=== PATIENT | female | born 1950 | race Caucasian/White ===

== ENCOUNTER 2017-02-23 08:18 | Observation (INO) | payer MEDICARE, OTHER ==
[2017-02-23] MEDS ORDERED: ONDANSETRON 4 MG/2 ML VIAL IVP STA (08:49)
[2017-02-23] MEDS ORDERED: SODIUM CHLORIDE 0.9% 1,000 ML IV STA (08:49)
[2017-02-23] MEDS ORDERED: RX INFO: IV CONTRAST WAS GIVEN 1 EACH MISC MISCELLANE PRN (08:49)
[2017-02-23] MEDS ORDERED: HYDROmorphone 0.5 MG/0.5 ML SYRINGE IVP STA ×2 (08:49→10:27)
--- NOTE | 2017-02-23 08:55 | ED ---
General Adult HPI - General Chief complaint: Abdominal Pain Stated complaint: Rt rib pain Time Seen by Provider: 02/23/17 08:45 Source: patient, RN notes reviewed Mode of arrival: wheelchair Limitations: no limitations - History of Present Illness Initial comments: 66 yo female presents to the ER with cc of right upper quadrant abdominal pain. She has had this since 8 AM yesterday. She states she's had nausea vomiting. She has a history of diverticulitis and states it feels much like that. She states she's been unable to keep really anything down. She's been drinking water. There's been no diarrhea. She does not think that she's had a fever but she has had the chills. Patient was concerned due to her continued symptoms so she thought that she should be evaluated.Patient denies any recent fever, chills, shortness of breath, chest pain, back pain, numbness or tingling , dysuria or hematuria, constipation or diarrhea, headaches or visual changes, or any other current symptoms. - Related Data Home Medications Medication Instructions Recorded Confirmed HYDROcodone/APAP 10-325MG [[place] 1 tab PO DAILY PRN 09/06/15 02/23/17 10-325] Allergies Allergy/AdvReac Type Severity Reaction Status Date / Time ibuprofen [From Motrin] AdvReac Abdominal Verified 02/23/17 08:59 Pain iodine AdvReac Abdominal Verified 02/23/17 08:59 Pain Review of Systems ROS Statement: Those systems with pertinent positive or pertinent negative responses have been documented in the HPI. ROS Other: All systems not noted in ROS Statement are negative. Past Medical History Additional Past Medical History / Comment(s): chronic back pain, diverticulitis History of Any Multi-Drug Resistant Organisms: None Reported Past Surgical History: Joint Replacement, Orthopedic Surgery Past Psychological History: No Psychological Hx Reported Smoking Status: Current every day smoker Past Alcohol Use History: Daily Past Drug Use History: None Reported General Exam - General Exam Comments Initial Comments: General: The patient is awake and alert, in no distress, and does not appear acutely ill. Eye: Pupils are equal, round and reactive to light, extra-ocular movements are intact; there is normal conjunctiva bilaterally. No signs of icterus. Ears, nose, mouth and throat: There are moist mucous membranes. Neck: The neck is supple, there is no tenderness. Cardiovascular: There is a regular rate and rhythm. No murmur, rub or gallop is appreciated. Respiratory: Lungs are clear to auscultation, respirations are non-labored, breath sounds are equal. No wheezes, stridor, rales, or rhonchi. Gastrointestinal: Soft, non-distended, mild tenderness right upper quadrant of the abdomen without masses or organomegaly noted. There is no rebound or guarding present. No CVA tenderness. Bowel sounds are unremarkable. Back: There is no tenderness to palpation in the midline. There is no obvious deformity. No rashes noted. Musculoskeletal: Normal ROM, no tenderness, There is no pedal edema. There is no calf tenderness or swelling. Sensation intact. Pulses equal bilaterally 2+. Neurological: CN II-XII intact, There are no obvious motor or sensory deficits. Coordination appears grossly intact. Speech is normal. Skin: Skin is warm and dry and no rashes or lesions are noted. Psychiatric: Cooperative, appropriate mood & affect, normal judgment. Limitations: no limitations Course Vital Signs 02/23/17 02/23/17 02/23/17 08:31 08:35 09:12 Temperature 97.0 F L Pulse Rate 102 H 73 Respiratory 20 16 Rate Blood Pressure 222/115 219/102 225/105 O2 Sat by Pulse 97 96 Oximetry 02/23/17 02/23/17 10:25 11:30 Temperature Pulse Rate 70 76 Respiratory 16 16 Rate Blood Pressure 199/99 198/95 O2 Sat by Pulse 99 98 Oximetry Medical Decision Making - Medical Decision Making 66-year-old female presents emergency department with a chief complaint of abdominal pain with history of diverticulitis. At this time patient's CAT scan is reviewed. Urinalysis does show suspicion for UTI would give her Rocephin. She symptoms are most consistent with pyelonephritis however we will treat. Patient also does appear to have this to are not bloody. We discussed the patient is could've been different etiologies. We discussed the risk of cancer with this. We did discuss that she does seem to be admitted to the hospital for continued care and evaluation. We discussed we will continue antibiotics. We did discuss that due to the vomited there is concern this could be a partial obstruction with this. Patient at this time was admitted to on-call care. [facility] accepts admission. - Lab Data Result diagrams: 02/23/17 09:00 02/23/17 09:00 Lab Results 02/23/17 02/23/17 02/23/17 Range/Units 09:00 09:00 09:00 WBC 9.2 (3.8-10.6) k/uL RBC 5.23 (3.80-5.40) m/uL Hgb 16.1 H (11.4-16.0) gm/dL Hct 49.9 H (34.0-46.0) % MCV 95.5 (80.0-100.0) fL MCH 30.9 (25.0-35.0) pg MCHC 32.3 (31.0-37.0) g/dL RDW 14.2 (11.5-15.5) % Plt Count 288 (150-450) k/uL Neutrophils % 83 % Lymphocytes % 13 % Monocytes % 3 % Eosinophils % 1 % Basophils % 0 % Neutrophils # 7.6 (1.3-7.7) k/uL Lymphocytes # 1.2 (1.0-4.8) k/uL Monocytes # 0.2 (0-1.0) k/uL Eosinophils # 0.1 (0-0.7) k/uL Basophils # 0.0 (0-0.2) k/uL Sodium 138 (137-145) mmol/L Potassium 4.2 (3.5-5.1) mmol/L Chloride 101 (98-107) mmol/L Carbon Dioxide 22 (22-30) mmol/L Anion Gap 15 mmol/L BUN 11 (7-17) mg/dL Creatinine 0.68 (0.52-1.04) mg/dL Est GFR (MDRD) Af Amer >60 (>60 ml/min/1.73 sqM) Est GFR (MDRD) Non-Af >60 (>60 ml/min/1.73 sqM) Glucose 128 H (74-99) mg/dL Plasma Lactic Acid Gareth 1.3 (0.7-2.0) mmol/L Calcium 10.3 H (8.4-10.2) mg/dL Total Bilirubin 1.2 (0.2-1.3) mg/dL AST 24 (14-36) U/L ALT 30 (9-52) U/L Alkaline Phosphatase 92 (38-126) U/L Total Protein 8.1 (6.3-8.2) g/dL Albumin 4.8 (3.5-5.0) g/dL Amylase 47 (30-110) U/L Lipase 41 (23-300) U/L Urine Color Urine Appearance (Clear) Urine pH (5.0-8.0) Ur Specific [place] (1.001-1.035) Urine Protein (Negative) Urine Glucose (UA) (Negative) Urine Ketones (Negative) Urine Blood (Negative) Urine Nitrite (Negative) Urine Bilirubin (Negative) Urine Urobilinogen (<2.0) mg/dL Ur Leukocyte Esterase (Negative) Urine RBC (0-5) /hpf Urine WBC (0-5) /hpf Ur Squamous Epith Cells (0-4) /hpf Urine Bacteria (None) /hpf Hyaline Casts (0-2) /lpf Urine Mucus (None) /hpf 02/23/17 Range/Units 09:00 WBC (3.8-10.6) k/uL RBC (3.80-5.40) m/uL Hgb (11.4-16.0) gm/dL Hct (34.0-46.0) % MCV (80.0-100.0) fL MCH (25.0-35.0) pg MCHC (31.0-37.0) g/dL RDW (11.5-15.5) % Plt Count (150-450) k/uL Neutrophils % % Lymphocytes % % Monocytes % % Eosinophils % % Basophils % % Neutrophils # (1.3-7.7) k/uL Lymphocytes # (1.0-4.8) k/uL Monocytes # (0-1.0) k/uL Eosinophils # (0-0.7) k/uL Basophils # (0-0.2) k/uL Sodium (137-145) mmol/L Potassium (3.5-5.1) mmol/L Chloride (98-107) mmol/L Carbon Dioxide (22-30) mmol/L Anion Gap mmol/L BUN (7-17) mg/dL Creatinine (0.52-1.04) mg/dL Est GFR (MDRD) Af Amer (>60 ml/min/1.73 sqM) Est GFR (MDRD) Non-Af (>60 ml/min/1.73 sqM) Glucose (74-99) mg/dL Plasma Lactic Acid Gareth (0.7-2.0) mmol/L Calcium (8.4-10.2) mg/dL Total Bilirubin (0.2-1.3) mg/dL AST (14-36) U/L ALT (9-52) U/L Alkaline Phosphatase (38-126) U/L Total Protein (6.3-8.2) g/dL Albumin (3.5-5.0) g/dL Amylase (30-110) U/L Lipase (23-300) U/L Urine Color Light Red Urine Appearance Cloudy H (Clear) Urine pH 6.0 (5.0-8.0) Ur Specific [place] 1.014 (1.001-1.035) Urine Protein Trace H (Negative) Urine Glucose (UA) Negative (Negative) Urine Ketones 2+ H (Negative) Urine Blood Moderate H (Negative) Urine Nitrite Negative (Negative) Urine Bilirubin Negative (Negative) Urine Urobilinogen <2.0 (<2.0) mg/dL Ur Leukocyte Esterase Large H (Negative) Urine RBC 29 H (0-5) /hpf Urine WBC 20 H (0-5) /hpf Ur Squamous Epith Cells 4 (0-4) /hpf Urine Bacteria Occasional H (None) /hpf Hyaline Casts 12 H (0-2) /lpf Urine Mucus Few H (None) /hpf - Radiology Data Radiology results: report reviewed, image reviewed Disposition Clinical Impression: UTI (urinary tract infection), Duodenal mass Disposition: ADMITTED IP TO THIS [facility] Condition: Stable Referrals: None,Stated [Primary Care Provider] - 1-2 days Time of Disposition: : Decision Date: 02/23/17 Decision Time: 18
[2017-02-23] MEDS ORDERED: FAMOTIDINE 20 MG/2 ML VIAL IV STA (09:00)
[2017-02-23] MEDS ORDERED: methylPREDNISolone SOD SUCCI 125 MG/2 ML VIAL IV STA (09:00)
[2017-02-23] MEDS ORDERED: diphenhydrAMINE 50 MG/ML 1 ML VIAL IVP STA (09:00)
[2017-02-23 09:23] LABS: Basophils % (A) 0 %; Eosinophils # (A) 0.1 k/uL (0-0.7); Eosinophils % (A) 1 %; HCT 49.9 % (34.0-46.0); HGB 16.1 gm/dL (11.4-16.0); Lymphocytes # (A) 1.2 k/uL (1.0-4.8); Lymphocytes % (A) 13 %; MCH 30.9 pg (25.0-35.0); MCHC 32.3 g/dL (31.0-37.0); MCV 95.5 fL (80.0-100.0); Mean Platelet Volume 8.2; Monocytes # (A) 0.2 k/uL (0-1.0); Monocytes % (A) 3 %; Neutrophils # (A) 7.6 k/uL (1.3-7.7); Neutrophils % (A) 83 %; Platelet Count 288 k/uL (150-450); RBC 5.23 m/uL (3.80-5.40); RDW 14.2 % (11.5-15.5); WBC 9.2 k/uL (3.8-10.6)
[2017-02-23 09:33] LABS: ALT 30 U/L (9-52); AST 24 U/L (14-36); Albumin 4.8 g/dL (3.5-5.0); Alkaline Phosphatase 92 U/L (38-126); Amylase 47 U/L (30-110); Anion Gap 15 mmol/L; Blood Urea Nitrogen 11 mg/dL (7-17); Calcium 10.3 mg/dL (8.4-10.2); Carbon Dioxide 22 mmol/L (22-30); Chloride 101 mmol/L (98-107); Glucose 128 mg/dL (74-99); Lipase 41 U/L (23-300); Potassium 4.2 mmol/L (3.5-5.1); Sodium 138 mmol/L (137-145); Total Bilirubin 1.2 mg/dL (0.2-1.3); Total Protein 8.1 g/dL (6.3-8.2)
[2017-02-23 09:37] LABS: Appearance,Urine Cloudy (Clear); Bacteria,Urine Occasional /hpf; Bilirubin,Urine Negative (Negative); Blood,Urine Moderate (Negative); Color,Urine Light Red; Glucose,Urine (UA) Negative (Negative); Hyaline Casts,Urine 12 /lpf (0-2); Ketones,Urine 2+ (Negative); Leukocyte Esterase,Urine Large (Negative); Mucus,Urine Few /hpf; Nitrite,Urine Negative (Negative); Protein,Urine Trace (Negative); RBC,Urine 29 /hpf (0-5); Specific Gravity,Urine 1.014 (1.001-1.035); Squamous Epithelial Cell,Urine 4 /hpf (0-4); Urobilinogen,Urine <2.0 mg/dL (<2.0); WBC,Urine 20 /hpf (0-5)
--- NOTE | 2017-02-23 10:34 | CT ---
EXAMINATION TYPE: CT abdomen pelvis w con DATE OF EXAM: 02/23/2017 HISTORY: Mid abd pain, vomiting, history of diverticulitis CT DLP: 313.8mGycm Automated Exposure Control for Dose Reduction was Utilized. CONTRAST: CT scan of the abdomen and pelvis is performed with IV Contrast, patient injected with 100 mL of Omni paque 300. COMPARISON: None. FINDINGS: LUNG BASES: No significant abnormality is appreciated. LIVER/GB: No significant abnormality is appreciated. No cholelithiasis. PANCREAS: No significant abnormality is seen. No ductal dilatation. SPLEEN: No significant abnormality is seen. No splenomegaly. ADRENALS: No discrete nodularity. KIDNEYS: Focal wedge-shaped area of hypoattenuation within the left kidney midpole to lower pole with out cortical retraction may represent infarct or pyelonephritis. No appreciable cortical rim sign is seen and therefore pyelonephritis is favored. Extrarenal pelvis is noted without hydronephrosis of ei ther kidney. BOWEL: There is proximal small bowel dilatation of the first through fourth portions of the duodenum measuring up to 3.7 cm on coronal series 7 image 26 of the descending duodenum with transition just d istal to the ligament of Treitz in the proximal aspect of the jejunum also on series 7 image 26 where there is slightly medial eccentric focal bowel wall thickening in a short segment of 9 mm on series 7 image 27 and 26 with bowel thickening up to 6.6 mm. Distal to this the jejunum as within normal bhandari its of caliber on series 7 image 19 measuring 2.7 cm. Remainder of the loops of small bowel are parti ally air-filled but nondilated. Evaluation of the colon is somewhat limited given incomplete distention and the possibility of intra- abdominal fat with closely opposing loops of small bowel, however no focal inflammatory changes seen. UTERUS/ADNEXA: Numerous engorged pelvic varices are seen bilaterally which can be seen in pelvic sonido estion syndrome. LYMPH NODES: Limited by the paucity of intra-abdominal fat. No gross evidence of greater than 1cm abd ominal or pelvic lymph nodes are appreciated. OSSEOUS STRUCTURES: Moderate degenerative disc disease of the visualized thoracolumbar and lumbosacra l spine are seen with grade 1 anterolisthesis of L4 on L5 without pars interarticularis defects. This is likely on a degenerative basis. IMPRESSION: 1. Focal wedge-shaped area of hypoattenuation within the left mid to lower pole without cortical rim sign therefore pyelonephritis is favored shows less likely renal infarct. Correlate with urinalysis. 2. Mildly dilated duodenum (segments 1 through 4) with transition point at an area of circumferential , slightly eccentric, and narrowing at the jejunum just past the ligament of Treitz. Stricture or mas s should be considered although infectious or inflammatory bowel wall thickening or possible. 3. 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
[2017-02-23] MEDS ORDERED: cefTRIAXone IN SWFI 1,000 MG/10 ML SYRINGE IVP STA (11:05)
[2017-02-23] MEDS ORDERED: NALOXONE 0.4 MG/ML 1 ML VIAL IV PRN (11:41)
[2017-02-23] MEDS ORDERED: ONDANSETRON 4 MG/2 ML VIAL IVP PRN (11:41)
[2017-02-23] MEDS: SODIUM CHLORIDE 0.9% 1,000 ML IV SCH (12:55)
--- NOTE | 2017-02-23 13:07 | P.CONS ---
History of Present Illness - Reason for Consult Possible urinary tract infection and peptic ulcer disease - History of Present Illness 66 yo female presents to the ER with cc of right upper quadrant abdominal pain. She has had this since 8 AM yesterday. She states she's had nausea vomiting. She has a history of diverticulitis and states it feels much like that. She states she's been unable to keep really anything down. She's been drinking water. There's been no diarrhea. She does not think that she's had a fever but she has had the chills. Patient's pain is in the right lower rib cage area and there is tenderness in that area, pain is about 7 x 10 now sharp in nature radiating to the back much worse earlier today. Patient had a CAT scan of the abdomen which showed possible stricture in the DRM are a mass in the duodenum with proximal dilated patient. Patient was started on Protonix patient will continue on IV fluids patient denied any sick and weight loss there was suspicion of or pyelonephritis on the CAT scan of the right lower pole of the kidney although there is no significant 70 evidence of urinary tract infection urine has elevated white blood cell count nitrate is negative leukocyte esterase is positive. Patient denied any dysuria suprapubic pain, since I cannot completely rule out urinary tract infection and started on Rocephin which will be continued. Review of Systems REVIEW OF SYSTEMS: CONSTITUTIONAL: No fever, no malaise, no fatigue. HEENT: No recent visual problems or hearing problems. Denied any sore throat. CARDIOVASCULAR: No chest pain, orthopnea, PND, no palpitations, no syncope. PULMONARY: No shortness of breath, no cough, no hemoptysis. GASTROINTESTINAL: As mentioned in HPI NEUROLOGICAL: No headaches, no weakness, no numbness. HEMATOLOGICAL: Denies any bleeding or petechiae. GENITOURINARY: Denies any burning micturition, frequency, or urgency. MUSCULOSKELETAL/RHEUMATOLOGICAL: Denies any joint pain, swelling, or any muscle pain. ENDOCRINE: Denies any polyuria or polydipsia. The rest of the 14-point review of systems is negative. Past Medical History Past Medical History: COPD, Osteoarthritis (OA), Pneumonia Additional Past Medical History / Comment(s): Chronic low back pain, DDD, bulging/herniated discs, sciatica bilaterally at times, diverticulitis, bilateral tinnitis at times, past R hip fracture after slip/fall on ice with surgery. History of Any Multi-Drug Resistant Organisms: None Reported Past Surgical History: Joint Replacement, Orthopedic Surgery Additional Past Surgical History / Comment(s): R hip hemiarthroplasty, R knee arthroscopy, R/L hand cyst removals, bilateral carpal tunnel releases, colonoscopy-normal. Past Anesthesia/Blood Transfusion Reactions: No Reported Reaction Additional Past Anesthesia/Blood Transfusion Reaction / Comm: Pt has never received blood. Smoking Status: Current every day smoker - Past Family History Father Additional Family Medical History / Comment(s): Father of a head injury. Mother Family Medical History: Dementia Additional Family Medical History / Comment(s): Mother is 89yrs old and has dementia. Medications and Allergies Home Medications Medication Instructions Recorded Confirmed Type HYDROcodone/APAP 10-325MG [[place] 1 tab PO DAILY PRN 09/06/15 02/23/17 History 10-325] Allergies Allergy/AdvReac Type Severity Reaction Status Date / Time ibuprofen [From Motrin] AdvReac Abdominal Verified 02/23/17 08:59 Pain iodine AdvReac Abdominal Verified 02/23/17 08:59 Pain Physical Exam Vitals: Vital Signs Temp Pulse Resp BP Pulse Ox 02/23/17 12:28 98.4 F 71 16 183/89 98 02/23/17 11:30 76 16 198/95 98 02/23/17 10:25 70 16 199/99 99 02/23/17 09:12 73 16 225/105 96 02/23/17 08:35 219/102 02/23/17 08:31 97.0 F L 102 H 20 222/115 97 Intake and Output 02/22/17 02/23/17 02/23/17 22:59 06:59 14:59 Other: Weight 45.813 kg Patient Weight 02/24/17 06:59 Weight 45.813 kg PHYSICAL EXAMINATION: GENERAL: The patient is alert and oriented x3, not in any acute distress. Thin built female HEENT: Pupils are round and equally reacting to light. EOMI. No scleral icterus. No conjunctival pallor. Normocephalic, atraumatic. No pharyngeal erythema. No thyromegaly. CARDIOVASCULAR: S1 and S2 present. No murmurs, rubs, or gallops. PULMONARY: Chest is clear to auscultation, no wheezing or crackles. ABDOMEN: Soft, nondistended, normoactive bowel sounds. No palpable organomegaly. Patient has tenderness in the right lower rib cage area MUSCULOSKELETAL: No joint swelling or deformity. EXTREMITIES: No cyanosis, clubbing, or pedal edema. NEUROLOGICAL: Gross neurological examination did not reveal any focal deficits. SKIN: No rashes. Results CBC & Chem 7: 02/23/17 09:00 02/23/17 09:00 Labs: Abnormal Lab Results - Last 24 Hours (Table) 02/23/17 02/23/17 02/23/17 Range/Units 09:00 09:00 09:00 Hgb 16.1 H (11.4-16.0) gm/dL Hct 49.9 H (34.0-46.0) % Glucose 128 H (74-99) mg/dL Calcium 10.3 H (8.4-10.2) mg/dL Urine Appearance Cloudy H (Clear) Urine Protein Trace H (Negative) Urine Ketones 2+ H (Negative) Urine Blood Moderate H (Negative) Ur Leukocyte Esterase Large H (Negative) Urine RBC 29 H (0-5) /hpf Urine WBC 20 H (0-5) /hpf Urine Bacteria Occasional H (None) /hpf Hyaline Casts 12 H (0-2) /lpf Urine Mucus Few H (None) /hpf Assessment and Plan Plan: -Abdominal pain nausea vomiting: Probably peptic ulcer disease with a stricture patient was started on Protonix further management as per primary surgical services. -Possibility of urinary tract infection cannot be ruled out urine cultures were obtained patient was started on Rocephin. -Nicotine abuse history: Counseling was provided
[2017-02-23] MEDS: HYDROmorphone 0.5 MG/0.5 ML SYRINGE IVP PRN ×3 (13:53→21:32)
[2017-02-23] MEDS: PANTOPRAZOLE 40 MG/10 ML VIAL IVP SCH ×2 (14:30→21:31)
--- NOTE | 2017-02-23 14:40 | P.GSHP ---
History of Present Illness H&P Date: 02/23/17 66-year-old thin fragile female looking older than stated age underweight presented to the emergency room with a chief complaint of right upper quadrant abdominal pain. Patient stated he had been ongoing for the past day. [place] nauseated with vomiting. Patient gives a history of having diverticulitis. Patient had a CAT scan of the abdomen and pelvic varices. Mildly dilated duodenum stricture or mass needs to be considered. Patient gives a history of alcohol consumption states that she drinks daily last drink was 48 hours ago. Patient states she has been having right lower rib area pain with tenderness. Patient states that she smokes marijuana daily and is an active current every day smoker. Patient states it's been over 20 years since she's had a colonoscopy. Past medical history COPD, osteoarthritis, chronic lower back pain. Past surgical history orthopedic procedures. - Review of Systems Comment: Essentially unremarkable except as mentioned in the present illness Past Medical History Past Medical History: COPD, Osteoarthritis (OA), Pneumonia Additional Past Medical History / Comment(s): Chronic low back pain, DDD, bulging/herniated discs, sciatica bilaterally at times, diverticulitis, bilateral tinnitis at times, past R hip fracture after slip/fall on ice with surgery. History of Any Multi-Drug Resistant Organisms: None Reported Past Surgical History: Joint Replacement, Orthopedic Surgery Additional Past Surgical History / Comment(s): R hip hemiarthroplasty, R knee arthroscopy, R/L hand cyst removals, bilateral carpal tunnel releases, colonoscopy-normal. Past Anesthesia/Blood Transfusion Reactions: No Reported Reaction Additional Past Anesthesia/Blood Transfusion Reaction / Comment(s): Pt has never received blood. Smoking Status: Current every day smoker - Past Family History Father Additional Family Medical History / Comment(s): Father of a head injury. Mother Family Medical History: Dementia Additional Family Medical History / Comment(s): Mother is 89yrs old and has dementia. Medications and Allergies Home Medications Medication Instructions Recorded Confirmed Type HYDROcodone/APAP 10-325MG [[place] 1 tab PO DAILY PRN 09/06/15 02/23/17 History 10-325] Allergies Allergy/AdvReac Type Severity Reaction Status Date / Time ibuprofen [From Motrin] AdvReac Abdominal Verified 02/23/17 08:59 Pain iodine AdvReac Abdominal Verified 02/23/17 08:59 Pain Surgical - Exam Vital Signs Temp Pulse Resp BP Pulse Ox 97.0 F L 102 H 20 222/115 97 02/23/17 08:31 02/23/17 08:31 02/23/17 08:31 02/23/17 08:31 02/23/17 08:31 GENERAL APPEARANCE: 66 -year-old female patient is alert, oriented,x 3 in no acute distress. VITAL SIGNS: Reviewed HEENT: Head is normocephalic and atraumatic. Pupils are equal and reactive. The nares are patent. Oropharynx is clear without lesions. NECK: Supple without lymphadenopathy. Traches midline. HEART: S1, S2. Regular rate and rhythm. Denies chest pain no murmur LUNGS: No crackles or wheezes are heard. No shortness of breath ABDOMEN: Soft, tenderness in the epigastric area nondistended with good bowel sounds. No peritoneal signs. No palpable organomegaly or masses. EXTREMITIES: Normal skin color and turgor. No cyanosis, rash, ulceration, clubbing or edema. Radial pedal pulses are 2/4 bilaterally. NEUROLOGICAL: No focal deficits. Strength and sensation are grossly intact. Results - Labs 02/23/17 09:00 02/23/17 09:00 Abnormal Lab Results - Last 24 Hours (Table) 02/23/17 02/23/17 02/23/17 Range/Units 09:00 09:00 09:00 Hgb 16.1 H (11.4-16.0) gm/dL Hct 49.9 H (34.0-46.0) % Glucose 128 H (74-99) mg/dL Calcium 10.3 H (8.4-10.2) mg/dL Urine Appearance Cloudy H (Clear) Urine Protein Trace H (Negative) Urine Ketones 2+ H (Negative) Urine Blood Moderate H (Negative) Ur Leukocyte Esterase Large H (Negative) Urine RBC 29 H (0-5) /hpf Urine WBC 20 H (0-5) /hpf Urine Bacteria Occasional H (None) /hpf Hyaline Casts 12 H (0-2) /lpf Urine Mucus Few H (None) /hpf Diabetes panel 02/23/17 Range/Units 09:00 Sodium 138 (137-145) mmol/L Potassium 4.2 (3.5-5.1) mmol/L Chloride 101 (98-107) mmol/L Carbon Dioxide 22 (22-30) mmol/L BUN 11 (7-17) mg/dL Creatinine 0.68 (0.52-1.04) mg/dL Glucose 128 H (74-99) mg/dL Calcium 10.3 H (8.4-10.2) mg/dL AST 24 (14-36) U/L ALT 30 (9-52) U/L Alkaline Phosphatase 92 (38-126) U/L Total Protein 8.1 (6.3-8.2) g/dL Albumin 4.8 (3.5-5.0) g/dL Calcium panel 02/23/17 Range/Units 09:00 Calcium 10.3 H (8.4-10.2) mg/dL Albumin 4.8 (3.5-5.0) g/dL Pituitary panel 02/23/17 Range/Units 09:00 Sodium 138 (137-145) mmol/L Potassium 4.2 (3.5-5.1) mmol/L Chloride 101 (98-107) mmol/L Carbon Dioxide 22 (22-30) mmol/L BUN 11 (7-17) mg/dL Creatinine 0.68 (0.52-1.04) mg/dL Glucose 128 H (74-99) mg/dL Calcium 10.3 H (8.4-10.2) mg/dL Adrenal panel 02/23/17 Range/Units 09:00 Sodium 138 (137-145) mmol/L Potassium 4.2 (3.5-5.1) mmol/L Chloride 101 (98-107) mmol/L Carbon Dioxide 22 (22-30) mmol/L BUN 11 (7-17) mg/dL Creatinine 0.68 (0.52-1.04) mg/dL Glucose 128 H (74-99) mg/dL Calcium 10.3 H (8.4-10.2) mg/dL Total Bilirubin 1.2 (0.2-1.3) mg/dL AST 24 (14-36) U/L ALT 30 (9-52) U/L Alkaline Phosphatase 92 (38-126) U/L Total Protein 8.1 (6.3-8.2) g/dL Albumin 4.8 (3.5-5.0) g/dL Assessment and Plan Assessment: Impression Present on admission right upper quadrant pain with nausea vomiting Possible UTI Daily alcohol consumption last drink 48 hours Daily marijuana use Current active tobacco abuse CAT scan of the abdomen possible stricture in the DRM with a mass in the duodenum not ruled out Plan EGD will be planned in the morning Home meds appropriate DVT and GI prophylaxis Clear liquid diet Further recommendations after EGD Pain control IV fluid for hydration Dietitian consult underweight nutritional supplements Dictating for Dr. cabrera The above impression and plan of care have been discussed and directed by signing physician. Preeti Post nurse practitioner acting as scribe for signing physician.
[2017-02-23 15:44] VITALS: BMI 17.3
[2017-02-24] MEDS: SODIUM CHLORIDE 0.9% 1,000 ML IV SCH ×3 (00:04→17:14)
[2017-02-24] MEDS: HYDROmorphone 0.5 MG/0.5 ML SYRINGE IVP PRN ×7 (00:11→21:07)
[2017-02-24 08:13] LABS: Basophils % (A) 0 %; Eosinophils % (A) 0 %; HCT 43.9 % (34.0-46.0); Lymphocytes # (A) 2.4 k/uL (1.0-4.8); Lymphocytes % (A) 26 %; MCH 31.1 pg (25.0-35.0); MCHC 31.9 g/dL (31.0-37.0); MCV 97.5 fL (80.0-100.0); Mean Platelet Volume 7.5; Monocytes # (A) 0.6 k/uL (0-1.0); Monocytes % (A) 7 %; Neutrophils # (A) 6.2 k/uL (1.3-7.7); Neutrophils % (A) 65 %; Platelet Count 265 k/uL (150-450); RDW 12.6 % (11.5-15.5); WBC 9.5 k/uL (3.8-10.6)
[2017-02-24] MEDS: PANTOPRAZOLE 40 MG/10 ML VIAL IVP SCH ×2 (08:20→21:07)
[2017-02-24 08:43] LABS: ALT 28 U/L (9-52); AST 21 U/L (14-36); Alkaline Phosphatase 62 U/L (38-126); Anion Gap 8 mmol/L; Blood Urea Nitrogen 12 mg/dL (7-17); Calcium 9.6 mg/dL (8.4-10.2); Carbon Dioxide 30 mmol/L (22-30); Chloride 102 mmol/L (98-107); Glucose 102 mg/dL (74-99); Potassium 4.1 mmol/L (3.5-5.1); Sodium 140 mmol/L (137-145); Total Bilirubin 0.9 mg/dL (0.2-1.3); Total Protein 6.9 g/dL (6.3-8.2)
--- NOTE | 2017-02-24 08:44 | CDI ---
Last Revision, January 2017 Documentation Clarification Form Date: 02/24/2017 8:27:00 AM From: Laure McfarlandDuncanCANDELARIO, CCDS Admit Date: 02/23/2017 11:40:00 AM Patient Name: Antonette Galan Visit Number: [id number] Discharge Date: ATTENTION: The Clinical Documentation Specialists (CDI) and [facility] Coding Staff appreciate your assistance in clarifying documentation. Please respond to the clarification below the line at the bottom and electronically sign. The CDI & [facility] Coding staff will review the response and follow-up if needed. Please note: Queries are made part of the Legal Health Record. If you have any questions, please contact the author of this message via ITS. Dr. Caden Celeste: Presented with abdominal pain, nausea, vomiting, possible PUD and stricture or mass of duodenum. Per H/P: Looks older than stated age, underweight. History/Risk Factors: Diverticulitis, daily alcohol consumption, smokes marijuana daily, tobacco smoker. Clinical Indicators: Musculoskeletal assessment: muscle tone: weak, stiff. Labs: UA: positive for UTI. Current BMI: 17.6 Treatment: po nutrition supplements, dietitian consult for malnutrition. IV fluid bolus, IV Rocephin, IV Protonix. In your professional opinion, can you please clarify if these findings signify one of the following conditions? Mild Protein Malnutrition Mild Protein-Calorie Malnutrition Moderate Protein Malnutrition Moderate Protein-Calorie Malnutrition Severe Protein Malnutrition Severe Protein-Calorie Malnutrition Other condition, please specify Unable to determine Please continue to document in your progress notes and discharge summary in order to capture severity of illness and risk of mortality. Include clinical findings that support your diagnosis. MTDD
--- NOTE | 2017-02-24 10:43 | P.PN ---
Subjective Patient was admitted for abdominal pain found to have some duodenal stricture or peptic ulcer disease. Patient is feeling better is going undergoing upper GI endoscopy after that patient probably will be discharged. Still complaining of same some pain in the abdomen. Patient is nothing by mouth at this time Constitutional: Denied any fatigue denied any fever. Cardio vascular: denied any chest pain, palpitations Gastrointestinal as mentioned in HPI Pulmonary: Denied any shortness of breath cough Neurologic denied any new focal deficits Objective - Vital Signs Vital signs: Vital Signs Temp 97.6 F 02/24/17 06:22 Pulse 65 02/24/17 06:22 Resp 16 02/24/17 06:22 BP 149/83 02/24/17 06:22 Pulse Ox 96 02/24/17 06:22 Intake & Output 02/23/17 02/24/17 02/24/17 18:59 06:59 18:59 Weight 45.813 kg 46.5 kg Other: Voiding Method Toilet # Voids 1 1 # Bowel Movements 0 - Exam PHYSICAL EXAMINATION: GENERAL: The patient is alert and oriented x3, not in any acute distress. Thin built female HEENT: Pupils are round and equally reacting to light. EOMI. No scleral icterus. No conjunctival pallor. Normocephalic, atraumatic. No pharyngeal erythema. No thyromegaly. CARDIOVASCULAR: S1 and S2 present. No murmurs, rubs, or gallops. PULMONARY: Chest is clear to auscultation, no wheezing or crackles. ABDOMEN: Soft, nondistended, normoactive bowel sounds. No palpable organomegaly. Patient has tenderness in the right lower rib cage area MUSCULOSKELETAL: No joint swelling or deformity. EXTREMITIES: No cyanosis, clubbing, or pedal edema. NEUROLOGICAL: Gross neurological examination did not reveal any focal deficits. SKIN: No rashes. - Labs CBC & Chem 7: 02/24/17 07:29 02/24/17 07:29 Labs: Abnormal Lab Results - Last 24 Hours (Table) 02/24/17 Range/Units 07:29 Glucose 102 H (74-99) mg/dL Assessment and Plan Plan: -Abdominal pain nausea vomiting: Probably peptic ulcer disease with a stricture -Possibility of urinary tract infection cannot be ruled out be discharged on 30 days of ciprofloxacin 500 twice a day -Nicotine abuse history: Counseling was provided
[2017-02-24] MEDS: cefTRIAXone IN SWFI 1,000 MG/10 ML SYRINGE IVP SCH (11:40)
[2017-02-24] MEDS ORDERED: PROPOFOL 10 MG/ML 20 ML VIAL IV ONE (15:16)
[2017-02-24] MEDS ORDERED: IV FLUID CONTINUATION 1,000 ML IV ONE (15:21)
--- NOTE | 2017-02-24 15:33 | P.OP ---
Date of Procedure: 02/24/17 Preoperative Diagnosis: Dysphagia, peptic ulcer disease Postoperative Diagnosis: Mild antral gastritis No evidence of hiatal hernia Mild esophagitis Procedure(s) Performed: EGD Anesthesia: MAC Surgeon: Caden Celeste Pathology: other (Antrum, esophagus) Condition: stable Disposition: PACU Description of Procedure: The patient's placed on the endoscopy table in the lateral position. She received IV sedation. The gastroscope placed oropharynx and passed in the esophagus and stomach. Scope was then placed through the pylorus. The first and second portion of the duodenum. Scope was then advanced up to the 70 cm taurus and no obvious duodenal tumor could be seen. Scope was then withdrawn the antrum appeared mildly inflamed. A biopsies performed. The scope was then retroflexed and remainder stomach appeared normal. There is no evidence of a hiatal hernia. GE junction was at 47 is. The distal esophagus was minimal inflamed and a biopsies performed. The proximal esophagus appeared normal. Scope was withdrawn from patient.
[2017-02-24 23:09] VITALS: RESP 16
[2017-02-25] MEDS: HYDROmorphone 0.5 MG/0.5 ML SYRINGE IVP PRN ×2 (00:48→05:09)
[2017-02-25] MEDS: SODIUM CHLORIDE 0.9% 1,000 ML IV SCH (04:26)
[2017-02-25 07:41] VITALS: BP 148/78; PULSE 66; TEMP 97.2
--- NOTE | 2017-02-25 10:20 | FL ---
EXAMINATION TYPE: FL UGI air w esoph w sm bowel DATE OF EXAM: 02/25/2017 9:34 AM COMPARISON: NONE CLINICAL HISTORY: Difficulty in swallowing. Upper GI examination was performed according to the air contrast technique. Barium and effervescent crystal was swallowed without difficulty or delay. Esophageal peristalsis and motility are within no rmal limits. There is no evidence for esophagitis, intraluminal mass or gastroesophageal reflux. Sma ll reducible sliding type hiatal hernia is noted. The stomach has a normal appearance in terms of its size, shape and location. No gastric filling def ects or ulcer craters are seen. The duodenal bulb and sweep are also free of intraluminal lesion or ulcer crater. A single contrast cervical esophagram was also performed following the ingestion of thin liquid bariu m. There is no evidence for aspiration or penetration. No masses are seen. No filling defects are evident. Prominence of the cricopharyngeal musculature. Small bowel follow-through was performed with transit time of approximately 30 minutes. There is no e vidence for obstruction. Small bowel loops are of normal caliber. Jejunal folds are mildly prominent with rapid transit time. No evidence for intra or extraluminal mass. Terminal ileum has a normal appearance. IMPRESSION: 1. Small sliding-type hiatal hernia. 2. No evidence for jejunal obstruction or small bowel obstruction at this time. Jejunal folds are mil dly prominent with rapid transit time.
--- NOTE | 2017-02-25 10:52 | P.PN ---
Subjective Patient was admitted for abdominal pain found to have some duodenal stricture or peptic ulcer disease. Patient is feeling better is going undergoing upper GI endoscopy after that patient probably will be discharged. Still complaining of same some pain in the abdomen. Patient is nothing by mouth at this time 02/25/2017 Patient symptoms resolved patient is clinically doing well and will be discharged today patient underwent upper GI endoscopy which showed gastritis esophagitis and sliding had a hernia no obstruction or mass was seen in the the abdomen him and patient also underwent the upper GI imaging all of which is negative Constitutional: Denied any fatigue denied any fever. Cardio vascular: denied any chest pain, palpitations Gastrointestinal as mentioned in HPI Pulmonary: Denied any shortness of breath cough Neurologic denied any new focal deficits Objective - Vital Signs Vital signs: Vital Signs Temp 97.2 F L 02/25/17 07:00 Pulse 66 02/25/17 07:00 Resp 16 02/25/17 07:00 BP 148/78 02/25/17 07:00 Pulse Ox 98 02/25/17 07:00 Intake & Output 02/24/17 02/25/17 02/25/17 18:59 06:59 18:59 Intake Total 100 200 Balance 100 200 Weight 48 kg Intake: IV 100 Oral 200 Other: Voiding Method Toilet # Voids 2 1 - Exam PHYSICAL EXAMINATION: GENERAL: The patient is alert and oriented x3, not in any acute distress. Thin built female HEENT: Pupils are round and equally reacting to light. EOMI. No scleral icterus. No conjunctival pallor. Normocephalic, atraumatic. No pharyngeal erythema. No thyromegaly. CARDIOVASCULAR: S1 and S2 present. No murmurs, rubs, or gallops. PULMONARY: Chest is clear to auscultation, no wheezing or crackles. ABDOMEN: Soft, nondistended, normoactive bowel sounds. No palpable organomegaly. Patient has tenderness in the right lower rib cage area MUSCULOSKELETAL: No joint swelling or deformity. EXTREMITIES: No cyanosis, clubbing, or pedal edema. NEUROLOGICAL: Gross neurological examination did not reveal any focal deficits. SKIN: No rashes. - Labs CBC & Chem 7: 02/24/17 07:29 02/24/17 07:29 Labs: Microbiology - Last 24 Hours (Table) 02/23/17 09:00 Blood Culture - Preliminary Blood No Growth after 24 hours Assessment and Plan Plan: -Abdominal pain nausea vomiting: Probably peptic ulcer disease, gastritis. Will be discharged on Prilosec -Possibility of urinary tract infection cannot be ruled out be discharged on 3 days of ciprofloxacin 500 twice a day -Nicotine abuse history: Counseling was provided
[2017-02-25] MEDS: PANTOPRAZOLE 40 MG/10 ML VIAL IVP SCH (10:57)
[2017-02-25] MEDS: cefTRIAXone IN SWFI 1,000 MG/10 ML SYRINGE IVP SCH (11:26)
--- NOTE | 2017-02-25 12:01 | P.DS ---
Providers Date of admission: 02/23/17 11:40 Expected date of discharge: 02/25/17 Attending physician: Caden Cabrera Consults: 02/23/17 11:41 Consult Physician Routine Consulting Provider: Miriam Chandra Consult Reason/Comments: medical Do you want consulting provider notified?: Yes Primary care physician: Stated None Hospital Course: 66-year-old female presented to the emergency room with right upper quadrant abdominal pain. Admitted to the services of the attending. Patient stated that she had persistent nausea sensation with vomiting. Patient did undergo CAT scan of the abdomen and pelvis it did show varices with some mild dilated duodenum stricture or mass needed to be considered. Patient does have a history of alcohol consumption states she drinks daily. Also patient was reportedly experiencing right lower rib pain. The patient did undergo an EGD on February [address] cabrera . It showed mild antral gastritis, no evidence of a hernia, mild esophagitis. Biopsies were obtained. Patient was followed by medicine service placed on a short course of antibiotics Cipro for possible UTI that could not be ruled out. Patient was counseled to stop drinking alcohol and nicotine cessation information provided. On the day of discharge patient was felt to be medically stable and appropriate to proceed with a discharge to home Impression discharge diagnosis Mild protein calorie malnutrition underweight BMI 18 suspect due to poor caloric intake related to alcoholism Present on admission right upper quadrant pain with nausea vomiting likely due to gastroenteritis Possible UTI abnormal urinalysis could not be ruled out Daily alcohol consumption last drink 48 hours Daily marijuana use Current active tobacco abuse EGD on the showed no evidence of a hiatal hernia, mild atrophic gastritis, mild esophagitis The above impression and plan of care have been discussed and directed by signing physician. Preeti Post nurse practitioner acting as scribe for signing physician. Patient Condition at Discharge: Stable Plan - Discharge Summary Discharge Rx Participant: No New Discharge Prescriptions: New Omeprazole [PriLOSEC] 40 mg PO AC-BRKFST #30 capsule. Ciprofloxacin HCl [Cipro] 500 mg PO Q12HR #6 tablet No Action HYDROcodone/APAP 10-325MG [[place] 10-325] 1 tab PO DAILY PRN PRN Reason: Pain Discharge Medication List HYDROcodone/APAP 10-325MG [[place] 10-325] 1 tab PO DAILY PRN 09/06/15 [History] Ciprofloxacin HCl [Cipro] 500 mg PO Q12HR #6 tablet 02/24/17 [Rx] Omeprazole [PriLOSEC] 40 mg PO FERNANDA-BRKFST #30 capsule. 02/24/17 [Rx] Follow up Appointment(s)/Referral(s): Tyler De La O MD [STAFF PHYSICIAN] - 03/03/17 2:00 pm Caden Cabrera MD [STAFF PHYSICIAN] - 03/04/17 3:00 pm Patient Instructions/Handouts: Urinary Tract Infection in Women (DC), Acute Abdominal Pain (DC) Activity/Diet/Wound Care/Special Instructions: NO smoking, cessation information provided. Regular diet. Activity as tolerated. Discharge Disposition: HOME SELF-CARE
== END 2017-02-25 12:41 | disposition home or self-care (01) ==
LOC: EC 08:18 → INTOOBSV 11:40 → 4MS4W 11:40
PROVIDERS: ADMIT Surgery; ATTEND Surgery
DX: R10.11 Right upper quadrant pain (principal); R11.2 Nausea with vomiting, unspecified; E44.1 Mild protein-calorie malnutrition; Z68.1 Body mass index [BMI] 19.9 or less, adult; F10.20 Alcohol dependence, uncomplicated; F17.200 Nicotine dependence, unspecified, uncomplicated; R82.90 Unspecified abnormal findings in urine; D72.829 Elevated white blood cell count, unspecified; R68.83 Chills (without fever); R07.81 Pleurodynia; K29.60 Other gastritis without bleeding; K20.9 Esophagitis, unspecified; K57.92 Diverticulitis of intestine, part unspecified, without perforation or abscess without bleeding; M54.32 Sciatica, left side; M54.31 Sciatica, right side; G89.29 Other chronic pain; J44.9 Chronic obstructive pulmonary disease, unspecified; M19.90 Unspecified osteoarthritis, unspecified site; M54.5 Low back pain; Z87.01 Personal history of pneumonia (recurrent); Z91.048 Other nonmedicinal substance allergy status; Z88.6 Allergy status to analgesic agent; Z81.8 Family history of other mental and behavioral disorders
CPT/HCPCS: 99285; 96361 ×2; 96374 ×2; 96375 ×7; 96376 ×4; 36415; 88305; 80053 ×2; 82150; 83605; 83690; 85025 ×2; 81001; 88342; 87040; 74249; 74177; 43239; G0378 ×3; J1200; J2930; J2405; J0696 ×3; Q9967; J2704; C9113 ×3; J1170 ×3

== ENCOUNTER → 2017-03-11 | Outpatient (CLI) | payer MEDICARE, OTHER ==
--- NOTE | 2017-03-11 13:34 | US ---
EXAMINATION TYPE: US gallbladder DATE OF EXAM: 03/11/2017 COMPARISON: Previous exam dated 09/06/2015 CLINICAL HISTORY: R10.11Right upper quadrant pain,K81.8 Cholecystiti. EXAM MEASUREMENTS: Liver Length: 11.4 cm Gallbladder Wall: 0.2 cm CBD: 0.2 cm Right Kidney: 9.1 x 4.3 x 4.6 cm Pancreas: Tail obscured by overlying bowel gas Liver: wnl Gallbladder: Somewhat contracted on some views. Evidence for sonographic Licona's sign: no CBD: wnl Right Kidney: Inferior and superior pole obscured by overlying bowel gas There is no ascites. IMPRESSION: There are some limitations to the exam. No significant abnormalities evident. Gallbladder appears contracted.
--- NOTE | 2017-03-11 21:19 | NM ---
EXAMINATION TYPE: NM hepatobiliary w CCK DATE OF EXAM: 03/11/2017 COMPARISON: NONE HISTORY: Abdominal pain TECHNIQUE: After the intravenous administration of 5.21 mCi Tc 99m Mebrofenin hepatobiliary scintigra phy is performed. Immediate images post injection. FINDINGS: There is prompt uptake of the tracer by the liver. Liver is upper limit of normal size. I see no foca l defect. There is tracer in the small bowel at 10 minutes. Tracer is mostly cleared from the liver a t one hour. There is no evidence of uptake of the tracer in the gallbladder. This patient has a gallbladder on the CT scan of 02/23/2017 with normal size. IMPRESSION: There is no tracer uptake in the gallbladder consistent with obstruction of the cystic du ct and cholecystitis. No focal liver defect. Common bile duct is not obstructed.
== END | disposition home or self-care (01) ==
LOC: RADUSMAIN 12:28
PROVIDERS: ATTEND Surgery
DX: R10.11 Right upper quadrant pain (principal); Z88.6 Allergy status to analgesic agent; Z88.8 Allergy status to other drugs, medicaments and biological substances
CPT/HCPCS: 76705; 78227; A9537; J2805

== ENCOUNTER 2017-03-22 08:06 | Day surgery (SDC) | payer MEDICARE, OTHER ==
[2017-03-18 09:03] VITALS: BMI 17.3
[~2017-03-22 08:06] MED LIST: DEXAMETHASONE SOD PHOSPHATE 10 MG/ML 1 ML VIAL IV ONE; HEPARIN SODIUM,PORCINE 5,000 UNIT/ML 1 ML VIAL SQ ONE; LACTATED RINGERS 1,000 ML IV SCH; LIDOCAINE 1% 20 ML VIAL (10MG/ML) FOR IV START INTRADERMA PRN; ONDANSETRON 4 MG/2 ML VIAL IVP ONE; SCOPOLAMINE 1.5MG/72HR PATCH TRANSDERM ONE; ceFAZolin IN SWFI 2 GM/20 ML SYRINGE IVP ONE
--- NOTE | 2017-03-22 08:39 | P.GSHP ---
History of Present Illness H&P Date: 03/22/17 Chief Complaint: Right upper quadrant pain This is a 66-year-old female who presents today for laparoscopic cholestatic. Her recent HIDA scan shows nonvisualization of the gallbladder suggestive cystic duct obstruction. He presents today for laparoscopic ostectomy for chronic cholecystitis. Past Medical History Past Medical History: COPD, Osteoarthritis (OA), Pneumonia Additional Past Medical History / Comment(s): DDD, bulging/herniated discs, sciatica, diverticulitis, bilateral tinnitis, past R hip fracture after slip/ fall on ice with surgery. hiatal hernia, History of Any Multi-Drug Resistant Organisms: None Reported Past Surgical History: Joint Replacement, Orthopedic Surgery Additional Past Surgical History / Comment(s): Rt hip replacement, Rt knee arthroscopy, bailey hand cyst removals, bilateral carpal tunnel releases, Past Anesthesia/Blood Transfusion Reactions: No Reported Reaction Additional Past Anesthesia/Blood Transfusion Reaction / Comment(s): Pt has never received blood. Smoking Status: Former smoker - Past Family History Father Additional Family Medical History / Comment(s): Father of a head injury. Mother Family Medical History: No Reported History Additional Family Medical History / Comment(s): Mother is 89yrs old and has dementia. Medications and Allergies Home Medications Medication Instructions Recorded Confirmed Type HYDROcodone/APAP 10-325MG [[place] 1 tab PO BID PRN 09/06/15 03/22/17 History 10-325] Calcium(Dose Unknown) 1 tab PO Q48H 03/18/17 03/22/17 History Omeprazole [PriLOSEC] 40 mg PO AC-BRKFST PRN 03/18/17 03/22/17 History Vitamin B Complex 1 each PO Q48H 03/18/17 03/22/17 History Vitamin C/Biotin [Hair, Skin and 1 tab PO Q48H 03/18/17 03/22/17 History Nails] Vitamin E (Dl,Tocopheryl Acet) 400 unit PO DAILY 03/18/17 03/22/17 History [Vitamin E] Allergies Allergy/AdvReac Type Severity Reaction Status Date / Time ibuprofen [From Motrin] AdvReac Abdominal Verified 03/22/17 08:18 Pain iodine AdvReac Abdominal Verified 03/22/17 08:18 Pain Surgical - Exam Vital Signs Temp Pulse Resp BP Pulse Ox 97.6 F 64 18 151/84 99 03/22/17 08:36 03/22/17 08:36 03/22/17 08:36 03/22/17 08:36 03/22/17 08:36 - General well developed, no distress - Eyes PERRL - ENT normal pinna - Neck no masses - Respiratory normal expansion - Cardiovascular Rhythm: regular - Abdomen Abdomen: soft, non tender Assessment and Plan Assessment: Cystic duct obstruction Chronically cholecystitis We'll perform laparoscopic cholecystectomy.
[2017-03-22] MEDS ORDERED: ROCURONIUM BROMIDE 10 MG/ML 10 ML VIAL IV ONE (09:05)
[2017-03-22] MEDS ORDERED: LIDOCAINE 1% INJ 10MG/ML (20 ML MDV) ONE (09:05)
[2017-03-22] MEDS ORDERED: SUCCINYLCHOLINE CHLORIDE 100 MG/5 ML SYR IV ONE (09:05)
[2017-03-22] MEDS ORDERED: NEOSTIGMINE 1 MG/ML 10 ML VIAL ONE (09:05)
[2017-03-22] MEDS ORDERED: MIDAZOLAM 2 MG/2 ML VIAL ONE (09:05)
[2017-03-22] MEDS ORDERED: PROPOFOL 10 MG/ML 20 ML VIAL IV ONE (09:05)
[2017-03-22] MEDS ORDERED: GLYCOPYRROLATE 0.2 MG/ML 2 ML VIAL ONE (09:05)
[2017-03-22] MEDS ORDERED: fentaNYL (PF) 50 MCG/ML 2 ML AMP ONE (09:05)
[2017-03-22] MEDS ORDERED: BUPIVACAINE (PF) 0.25% 30 ML VIAL SQ ONE (09:23)
--- NOTE | 2017-03-22 09:47 | P.OP ---
Date of Procedure: 03/22/17 Preoperative Diagnosis: Cholecystitis Postoperative Diagnosis: Cholecystitis Procedure(s) Performed: Laparoscopic cholecystectomy Anesthesia: BEE Surgeon: Caden Celeste Estimated Blood Loss (ml): 5 Pathology: other (Gallbladder) Condition: stable Disposition: PACU Description of Procedure: The patient was placed on the operating table. The patient received a general endotracheal tube anesthesia. The patients abdomen was prepped and draped in the usual sterile fashion. Through an infraumbilical stab incision, the fascia of the anterior abdominal wall was grasped with a pair of Kochers and then the Veress needle was placed in the peritoneal cavity. Position of the Veress needle was confirmed with positive drop test. The abdomen was then insufflated. After adequate insufflation, the 10 mm trocar was placed in the peritoneal cavity. Following this the laparoscope was placed in the peritoneal cavity. The patient was placed in the head-up, right side up position and then a 5 mm trocar was placed in the right lateral and right subcostal position under direct visualization. A 8 mm trocar was placed in the epigastric position. The gallbladder was grasped in the fundus and infundibulum. Traction on the gallbladder was placed in the lateral and the cephalad positions. The triangle of Calot was visualized.. The cystic duct was bluntly dissected until the union of the cystic duct and common bile duct was seen. The cystic duct was then divided and sealed with the Harmonic scissors. A PDS Endoloop was then placed throughout the cystic duct stump. The cystic artery divided and sealed with the Harmonic scissors. The gallbladder was then removed from the liver bed using Harmonic scissors. The gallbladder was then extracted through the epigastric port site. Operative field was checked for any bleeding spots and Harmonic scissors was used to coagulate the liver bed. The abdomen was irrigated. The trocars were removed. The skin was closed using interrupted 3-0 Vicryl suture. Dermabond dressing were applied. The patient tolerated the procedure well.
[2017-03-22] MEDS ORDERED: LACTATED RINGERS 1,000 ML IV ONE (09:52)
[2017-03-22 10:00] VITALS: RESP 16; TEMP 97
[2017-03-22] MEDS: HYDROmorphone 0.5 MG/0.5 ML SYRINGE IVP PRN ×2 (10:07→10:13)
[2017-03-22] MEDS: MEPERIDINE 50 MG/ML SYRINGE IVP ONE ×2 (10:24→10:32)
[2017-03-22 12:06] VITALS: BP 119/73; PULSE 80
== END 2017-03-22 13:16 | disposition home or self-care (01) ==
LOC: OR 08:06
PROVIDERS: ATTEND Surgery
DX: K81.1 Chronic cholecystitis (principal); J44.9 Chronic obstructive pulmonary disease, unspecified; M19.90 Unspecified osteoarthritis, unspecified site; Z87.891 Personal history of nicotine dependence; H93.19 Tinnitus, unspecified ear; K21.9 Gastro-esophageal reflux disease without esophagitis; Z88.6 Allergy status to analgesic agent
CPT/HCPCS: 88304; 47562; J2250; J1644; J1100; J2710; J2175; J2405; J2001; J3010; J0330; J2704; J1170; J0690

== ENCOUNTER 2017-12-07 09:46 | Emergency (ER) | payer MEDICARE, OTHER ==
[2017-12-07] MEDS ORDERED: MORPHINE SULFATE 2 MG/ML SYRINGE IM STA ×2 (10:24→13:15)
--- NOTE | 2017-12-07 10:37 | ED ---
General Adult HPI - General Chief complaint: Extremity Problem,Nontraumatic Stated complaint: left wrist pain Time Seen by Provider: 12/07/17 10:00 Source: patient, RN notes reviewed Mode of arrival: wheelchair Limitations: no limitations - History of Present Illness Initial comments: This is a 67-year-old female who comes in complaining of left posterior wrist pain and swelling. Patient states she had surgery on that wrist for ganglion cyst years ago by Dr. Moses. Patient states last night she was doing a lot of moving at home and it became very painful and swollen posteriorly. Patient denies any direct injury or trauma. Patient denies any hand or finger pain. Patient states it hurts somewhat she's unable to flexors extend her wrist. Patient denies any fever chills per patient denies any redness or streaking. - Related Data Home Medications Medication Instructions Recorded Confirmed HYDROcodone/APAP 10-325MG [[place] 1 tab PO BID PRN 09/06/15 12/07/17 10-325] Allergies Allergy/AdvReac Type Severity Reaction Status Date / Time ibuprofen [From Motrin] AdvReac Abdominal Verified 12/07/17 10:16 Pain iodine AdvReac Abdominal Verified 12/07/17 10:16 Pain Review of Systems ROS Statement: Those systems with pertinent positive or pertinent negative responses have been documented in the HPI. ROS Other: All systems not noted in ROS Statement are negative. Past Medical History Past Medical History: COPD, Osteoarthritis (OA), Pneumonia Additional Past Medical History / Comment(s): DDD, bulging/herniated discs, sciatica, diverticulitis, bilateral tinnitis, past R hip fracture after slip/ fall on ice with surgery. hiatal hernia, History of Any Multi-Drug Resistant Organisms: None Reported Past Surgical History: Joint Replacement, Orthopedic Surgery Additional Past Surgical History / Comment(s): Rt hip replacement, Rt knee arthroscopy, bailey hand cyst removals, bilateral carpal tunnel releases, Past Anesthesia/Blood Transfusion Reactions: No Reported Reaction Additional Past Anesthesia/Blood Transfusion Reaction / Comment(s): Pt has never received blood. Past Psychological History: No Psychological Hx Reported Smoking Status: Former smoker Past Alcohol Use History: Daily Past Drug Use History: Marijuana - Past Family History Father Additional Family Medical History / Comment(s): Father of a head injury. Mother Family Medical History: No Reported History Additional Family Medical History / Comment(s): Mother is 89yrs old and has dementia. General Exam - General Exam Comments Initial Comments: GENERAL Patient is well-developed and well-nourished. Patient is in mild distress. EYES Patient's pupils are equal and round. Extraocular motion is intact SKIN Unremarkable NEURO The patient is alert and oriented 3 PYSCH Patient has normal interpersonal interactions. MUSCULOSKELETAL Right wrist is tender to palpation posteriorly and it's swollen posteriorly over the scaphoid region. Patient had normal capillary refill. Limitations: no limitations Course Vital Signs 12/07/17 12/07/17 09:50 12:17 Temperature 97.7 F Pulse Rate 77 79 Respiratory 22 20 Rate Blood Pressure 228/82 201/106 O2 Sat by Pulse 100 100 Oximetry Medical Decision Making - Medical Decision Making X-ray showed no acute abnormality. Patient was still in quite a bit of pain I had the physician assistant to the ceo from [facility] come over by the name of Elisabeth she stated that they could keep the patient in the hospital but the patient refuses to stay in the hospital. Patient was signing out AMA and she remains in quite a bit of pain. I told her if she is going to go home she needs to follow up tomorrow. She was in agreement with this. Disposition Clinical Impression: Wrist pain, acute Disposition: Left Against Medical Advice Instructions: Swollen Joint (ED) Additional Instructions: Patient is to follow-up with [facility] tomorrow but call today for an appointment. Patient is aware of this she states she will do it. Patient will not be given any steroids to go home with because she got a dose of the emergency department and [facility] can continue that medication as they see fit. Is patient prescribed a controlled substance at d/c from ED?: No Referrals: None,Stated [Primary Care Provider] - 1-2 days Time of Disposition: 13:19
[2017-12-07] MEDS ORDERED: KETOROLAC 60 MG/2 ML VIAL IM STA (11:46)
--- NOTE | 2017-12-07 11:49 | XR ---
EXAMINATION TYPE: XR wrist complete LT DATE OF EXAM: 12/07/2017 CLINICAL HISTORY: Left wrist pain and numbness. TECHNIQUE: Frontal, lateral and oblique images of the left wrist are obtained. COMPARISON: None FINDINGS: There is no acute fracture/dislocation evident in the left wrist. There is joint space nay rowing of the carpal carpal interspaces and first carpometacarpal joint as well as the radiocarpal denny int with numerous osseous cysts of the carpal bones and opposing surface sclerosis of the radiocarpal joint as well as the carpometacarpal joint. Well-corticated osseous fragment likely sequela prior in jury is seen at the ulnar styloid. There is diffuse soft tissue swelling around the wrist. No radiopa que foreign body is seen. IMPRESSION: There is no acute fracture or dislocation in the left wrist. Generalized soft tissue swe lling surrounding the left wrist and advanced arthropathy with distribution favoring rheumatoid arthr itis although there is no erosion of the ulnar styloid.
[2017-12-07] MEDS ORDERED: KETOROLAC 30 MG/ML 1 ML VIAL IM STA (11:53)
[2017-12-07] MEDS ORDERED: predniSONE 50 MG TAB PO STA (13:15)
[2017-12-07 14:01] VITALS: BP 207/104; PULSE 86; RESP 18; TEMP 98
== END 2017-12-07 14:02 | disposition left against medical advice (07) ==
LOC: EC 09:46
DX: M25.532 Pain in left wrist (principal); M25.432 Effusion, left wrist; M19.90 Unspecified osteoarthritis, unspecified site; Z96.641 Presence of right artificial hip joint; Z87.39 Personal history of other diseases of the musculoskeletal system and connective tissue; Z98.890 Other specified postprocedural states; Z87.891 Personal history of nicotine dependence; Z53.29 Procedure and treatment not carried out because of patient's decision for other reasons; Z88.6 Allergy status to analgesic agent; Z91.048 Other nonmedicinal substance allergy status
CPT/HCPCS: 73110; 99284; 96372 ×3; J1885; J2270; J7512

== ENCOUNTER 2019-08-11 03:28 | Emergency (ER) | payer MEDICARE ==
[2019-08-11] MEDS ORDERED: DIPH,PERTUS(ACELL)TETVAC-LF 0.5 ML VIAL IM ONE (03:39)
--- NOTE | 2019-08-11 03:45 | ED ---
Fall HPI - General Chief Complaint: Fall Stated Complaint: Fall Time Seen by Provider: 08/11/19 03:33 Source: EMS Mode of arrival: EMS Limitations: altered mental status - History of Present Illness MD Complaint: fall -: minutes(s) Fall From: down stairs (#) When Fall Occurred: just prior to arrival Fall Witnessed: yes, by family Place Fall Occurred: home Loss of Consciousness: none Prolonged Down Time?: no Symptoms Prior to Fall: none Context: alcohol use - Related Data Home Medications Medication Instructions Recorded Confirmed Ascorbic Acid [Vitamin C] 500 mg PO DAILY 08/11/19 08/11/19 Biotin 5 mg PO DAILY 08/11/19 08/11/19 Cholecalciferol [Vitamin D3 (25 1,000 unit PO DAILY 08/11/19 08/11/19 Mcg = 1000 Iu)] HYDROcodone/APAP 7.5-325MG [[place] 1 tab PO BID PRN 08/11/19 08/11/19 7.5-325] Vitamin B Complex 1 cap PO DAILY 08/11/19 08/11/19 Previous Rx's Medication Instructions Recorded Hydrocodone/Acetaminophen [[place] 1 each PO Q6HR PRN #20 tab 08/11/19 5-325] Allergies Allergy/AdvReac Type Severity Reaction Status Date / Time ibuprofen [From Motrin] AdvReac Abdominal Verified 08/11/19 06:52 Pain iodine AdvReac Abdominal Verified 08/11/19 06:52 Pain Review of Systems ROS Statement: Those systems with pertinent positive or pertinent negative responses have been documented in the HPI. ROS Other: All systems not noted in ROS Statement are negative. Limitations: ROS unobtainable due to patients medical condition Past Medical History Past Medical History: COPD, Osteoarthritis (OA), Pneumonia Additional Past Medical History / Comment(s): DDD, bulging/herniated discs, sciatica, diverticulitis, bilateral tinnitis, past R hip fracture after slip/fall on ice with surgery. hiatal hernia, History of Any Multi-Drug Resistant Organisms: None Reported Past Surgical History: Joint Replacement, Orthopedic Surgery Additional Past Surgical History / Comment(s): Rt hip replacement, Rt knee arthroscopy, bailey hand cyst removals, bilateral carpal tunnel releases, Past Anesthesia/Blood Transfusion Reactions: No Reported Reaction Additional Past Anesthesia/Blood Transfusion Reaction / Comment(s): Pt has never received blood. Past Psychological History: No Psychological Hx Reported Smoking Status: Former smoker Past Alcohol Use History: Daily Past Drug Use History: Marijuana - Past Family History Father Additional Family Medical History / Comment(s): Father of a head injury. Mother Family Medical History: No Reported History Additional Family Medical History / Comment(s): Mother is 89yrs old and has dementia. General Exam Limitations: altered mental status General appearance: obtunded Head exam: Present: atraumatic, normocephalic Eye exam: Present: normal appearance. Absent: scleral icterus, conjunctival injection, periorbital swelling, periorbital tenderness ENT exam: Present: normal oropharynx, TM's normal bilaterally, normal external ear exam, other (Swelling and mild tenderness to base of nose.) Neck exam: Present: normal inspection, other (Cervical collar) Respiratory exam: Present: normal lung sounds bilaterally. Absent: respiratory distress, wheezes, rales, rhonchi, stridor, chest wall tenderness Cardiovascular Exam: Present: regular rate, normal rhythm, normal heart sounds. Absent: systolic murmur, diastolic murmur, rubs, gallop GI/Abdominal exam: Present: soft. Absent: distended, tenderness, guarding, re bound, rigid, mass Extremities exam: Present: normal inspection, normal capillary refill. Absent: pedal edema, calf tenderness Back exam: Present: normal inspection. Absent: CVA tenderness (R), CVA tenderness (L), vertebral tenderness Neurological exam: Present: altered Skin exam: Present: warm, dry, intact, normal color, abrasion. Absent: rash Course Vital Signs 08/11/19 08/11/19 03:31 05:37 Temperature 94.6 F L Pulse Rate 88 83 Respiratory 12 16 Rate Blood Pressure 152/85 133/85 O2 Sat by Pulse 98 97 Oximetry Medical Decision Making - Medical Decision Making This patient is a 68-year-old woman brought by ambulance to have evaluation after she had a fall. On the scene they were able to obtain the history that the patient had been drinking and then tumbled down approximately 12 or 13 stairs. They report that the patient was initially somewhat belligerent and c ombative though she was able to speak clearly. EMS did end up placing patient in cervical collar and backboard precautions and then they did start an IV and reportedly gave Versed 2.5 mg as the patient was attempting to strike them. As result when the patient is here she is not able to give any history. The patient is therefore sent for CT and also had the x-rays which did reveal pubic ramus fracture. As the Versed wore off and the patient became more alert she denied any other complaints then the pain to the right side of her pelvis when she would attempt to bear weight. Patient has previously seen Dr. Carter for hip surgery. I was going to admit the patient to also have orthopedic consultation, but the patient states that she is feeling much better and wants to go home. She understands that she must use a walker and not be weightbearing right leg. I discussed case with the orthopedic service physician assistants, and they will have the patient in the clinic. Patient understands that she needs to return here if there is any change in how she is feeling, she develops any new symptoms, or if there is worsening in any way. - Lab Data Result diagrams: 08/11/19 03:42 08/11/19 03:42 Lab Results 08/11/19 08/11/19 Range/Units 03:42 03:42 WBC 4.1 (3.8-10.6) k/uL RBC 4.31 (3.80-5.40) m/uL Hgb 13.9 (11.4-16.0) gm/dL Hct 42.3 (34.0-46.0) % MCV 98.2 (80.0-100.0) fL MCH 32.3 (25.0-35.0) pg MCHC 32.8 (31.0-37.0) g/dL RDW 13.3 (11.5-15.5) % Plt Count 248 (150-450) k/uL Neutrophils % 85 % Lymphocytes % 11 % Monocytes % 2 % Eosinophils % 1 % Basophils % 0 % Neutrophils # 3.5 (1.3-7.7) k/uL Lymphocytes # 0.4 L (1.0-4.8) k/uL Monocytes # 0.1 (0-1.0) k/uL Eosinophils # 0.0 (0-0.7) k/uL Basophils # 0.0 (0-0.2) k/uL Sodium 134 L (137-145) mmol/L Potassium 3.8 (3.5-5.1) mmol/L Chloride 98 (98-107) mmol/L Carbon Dioxide 15 L (22-30) mmol/L Anion Gap 21 mmol/L BUN 13 (7-17) mg/dL Creatinine 0.53 (0.52-1.04) mg/dL Est GFR (CKD-EPI)AfAm >90 (>60 ml/min/1.73 sqM) Est GFR (CKD-EPI)NonAf >90 (>60 ml/min/1.73 sqM) Glucose 126 H (74-99) mg/dL Calcium 9.1 (8.4-10.2) mg/dL Total Bilirubin 0.7 (0.2-1.3) mg/dL AST 122 H (14-36) U/L ALT 176 H (4-34) U/L Alkaline Phosphatase 131 H (38-126) U/L Total Protein 7.7 (6.3-8.2) g/dL Albumin 4.5 (3.5-5.0) g/dL Serum Alcohol 215 H* mg/dL - EKG Data -: EKG Interpreted by Me EKG shows normal: sinus rhythm (Rate 81 bpm), axis (Normal), intervals (Normal), QRS complexes (Normal), ST-T waves Rate: normal Interpretation: LVH Disposition Clinical Impression: Fall, Pubic bone fracture, Pre-syncope, Alcohol intoxication Disposition: HOME SELF-CARE Condition: Fair Instructions (If sedation given, give patient instructions): Nasal Fracture (ED), Pelvic Fracture (ED), Alcohol Intoxication (ED), Fall Prevention (ED) Prescriptions: Hydrocodone/Acetaminophen [[place] 5-325] 1 each PO Q6HR PRN #20 tab PRN Reason: Pain Is patient prescribed a controlled substance at d/c from ED?: Yes When asked, does pt state using other controlled substances?: No If prescribed controlled substance>3 days was MAPS reviewed?: Prescribed <3 Days If opioid is for acute pain is fill amount 7 days or less?: Yes If Rx opioid, was Start Talking consent form obtained?: Yes Referrals: None,Stated [Primary Care Provider] - 1-2 days
[2019-08-11 03:48] LABS: Basophils % (A) 0 %; Eosinophils % (A) 1 %; HCT 42.3 % (34.0-46.0); HGB 13.9 gm/dL (11.4-16.0); Lymphocytes # (A) 0.4 k/uL (1.0-4.8); Lymphocytes % (A) 11 %; MCH 32.3 pg (25.0-35.0); MCHC 32.8 g/dL (31.0-37.0); MCV 98.2 fL (80.0-100.0); Mean Platelet Volume 8.2; Monocytes # (A) 0.1 k/uL (0-1.0); Monocytes % (A) 2 %; Neutrophils # (A) 3.5 k/uL (1.3-7.7); Neutrophils % (A) 85 %; Platelet Count 248 k/uL (150-450); RBC 4.31 m/uL (3.80-5.40); RDW 13.3 % (11.5-15.5); WBC 4.1 k/uL (3.8-10.6)
[2019-08-11 04:02] LABS: ALT 176 U/L (4-34); AST 122 U/L (14-36); African American GFR (CKD) >90 (>60 ml/min/1.73 sqM); Albumin 4.5 g/dL (3.5-5.0); Alkaline Phosphatase 131 U/L (38-126); Anion Gap 21 mmol/L; Blood Urea Nitrogen 13 mg/dL (7-17); Calcium 9.1 mg/dL (8.4-10.2); Carbon Dioxide 15 mmol/L (22-30); Chloride 98 mmol/L (98-107); Glucose 126 mg/dL (74-99); Non-African American GFR(CKD) >90 (>60 ml/min/1.73 sqM); Potassium 3.8 mmol/L (3.5-5.1); Sodium 134 mmol/L (137-145); Total Bilirubin 0.7 mg/dL (0.2-1.3); Total Protein 7.7 g/dL (6.3-8.2)
[2019-08-11 04:04] LABS: Alcohol 215 mg/dL
--- NOTE | 2019-08-11 04:05 | XR ---
EXAMINATION TYPE: XR chest 1V portable DATE OF EXAM: 08/11/2019 COMPARISON: 03/20/2013 HISTORY: Fall. Pain. TECHNIQUE: FINDINGS: There is no heart failure nor confluent pneumonic infiltrate. There is no sign of pleural e ffusion or pneumothorax. Exam limited by the backboard. The bony thorax is intact. Trachea is midline . Heart size is normal. IMPRESSION: No active cardiopulmonary disease. No change.
--- NOTE | 2019-08-11 04:07 | XR ---
EXAMINATION TYPE: XR pelvis AP view DATE OF EXAM: 08/11/2019 COMPARISON: NONE HISTORY: Fall. Pain. TECHNIQUE: Single view FINDINGS: There is right hip prosthesis. There is fracture of the right inferior pubic ramus. There i s some deformity of the medial acetabulum and probably also fracture of the superior pubic ramus. Exa m is limited by the backboard-single view only exam. The sacroiliac joints are intact. IMPRESSION: Right-sided pubic ramus fracture. This appears new compared to 03/13/2013 hip x-ray. BMB
--- NOTE | 2019-08-11 04:19 | CT ---
EXAMINATION TYPE: CT brain adanine wo con DATE OF EXAM: 08/11/2019 COMPARISON: None HISTORY: fall down stairs Headache. Neck pain CT DLP: 1294.70 mGycm Automated exposure control for dose reduction was used. Ventricles and sulci appear normal. There is no mass effect nor midline shift. There is no sign of in tracranial hemorrhage. The calvarium is intact. Skull base is intact. Cervical vertebra show a mild subluxation deformity at C4-5 of 5 mm. There is developmentally adequat e spinal canal. The posterior elements are intact. There is mild cervical facet arthropathy. There is no compression fracture. There is narrowing of C5-6 and C6-7 disc spaces. IMPRESSION: Negative CT scan of the brain. Spondylolisthesis at C4-5. No cervical spine fracture.
--- NOTE | 2019-08-11 06:58 | CT ---
EXAMINATION TYPE: CT hip RT wo con DATE OF EXAM: 08/11/2019 COMPARISON: None HISTORY: possible acetabulum fracture CT DLP: 367.8 mGycm Automated exposure control for dose reduction was used. Multiple axial sections were obtained from the mid acetabulum to the proximal shaft of the femur with out contrast. There is metal artifact from the hip prosthesis and this obscures detail of the bone of the acetabulu m. There is a nondisplaced right inferior pubic ramus fracture. The right superior pubic ramus shows no evidence of a displaced fracture. The proximal femur is intact. There is limited visualization of the upper and mid pelvis. There appears to be 6 cm rounded mass involving the anterior abdominal wall that could be abdominal wall hematoma. IMPRESSION: Exam fails to show an acetabular fracture. There is right inferior pubic ramus fracture. There is par tial visualization of a high density irregular 6 cm mass that appears to be extraperitoneal above the urinary bladder and related to abdominal wall hematoma.
[2019-08-11] MEDS ORDERED: HYDROcodone/APAP 5-325MG 1 EACH TAB PO STA (07:35)
[2019-08-11 08:12] VITALS: BP 107/71; RESP 18
[2019-08-11 09:24] VITALS: PULSE 84; TEMP 98
== END 2019-08-11 09:46 | disposition home or self-care (01) ==
LOC: EC 03:28
DX: S32.591A Other specified fracture of right pubis, initial encounter for closed fracture (principal); R55 Syncope and collapse; F10.129 Alcohol abuse with intoxication, unspecified; M19.90 Unspecified osteoarthritis, unspecified site; Z23 Encounter for immunization; Z96.641 Presence of right artificial hip joint; Z87.81 Personal history of (healed) traumatic fracture; Z87.891 Personal history of nicotine dependence; Z79.891 Long term (current) use of opiate analgesic; Z98.890 Other specified postprocedural states; Z88.5 Allergy status to narcotic agent; Z91.048 Other nonmedicinal substance allergy status; W10.9XXA Fall (on) (from) unspecified stairs and steps, initial encounter; Y92.009 Unspecified place in unspecified non-institutional (private) residence as the place of occurrence of the external cause; Y90.7 Blood alcohol level of 200-239 mg/100 ml
CPT/HCPCS: 99284; 90471; 36415; 93005; 80053; 85025; 72170; 71045; 72125; 70450; 73700; 90715; G0480; 80320